=== PATIENT | male | born 1965 | race Caucasian/White ===

== ENCOUNTER 2023-01-25 09:06 | Outpatient (CLI) | payer BC ==
[2023-01-25 10:38] LABS: #Eosinphils 0.1 10x3/uL (0.0-0.5); #Monocytes 0.5 10x3/uL (0.0-1.1); %Basophils 0.7 % (0.0-2.0); %Eosinophils 2.2 % (0.0-6.0); %Lymphocytes 22.8 % (18.0-47.0); %Monocytes 7.5 % (0.0-10.0); %Neutrophils 66.5 % (40.0-75.0); Hemoglobin 13.5 g/dL (13.5-17.5); Mean Corpuscular HGB CONC 33.2 g/dL (32.0-36.0); Mean Corpuscular Hemoglobin 30.4 pg (27.0-33.0); Mean Corpuscular Volume 91.7 fl (81.2-95.1); Mean Platelet Volume 11.9 fl (7.4-10.4); Platelet Count 168 10x3/uL (150-450); RBC Distribution Width 12.8 % (11.5-14.5); Red Blood Cell (RBC) Count 4.44 10x6/uL (4.32-5.72)
== END 2023-01-25 09:07 | disposition home or self-care (01) ==
LOC: LABBT 09:06
PROVIDERS: ATTEND Surgery
DX: Z01.818 Encounter for other preprocedural examination (principal); K42.9 Umbilical hernia without obstruction or gangrene
CPT/HCPCS: 85025; 93005; 93010

== ENCOUNTER 2023-01-30 08:05 | Day surgery (SDC) | payer BC ==
[2023-01-26 11:38] VITALS: BMI 30.1
[2023-01-30] MEDS ORDERED: fentaNYL 50 mcg/mL 1 mL Vial ONE (10:52)
[2023-01-30] MEDS ORDERED: CEFAZOLIN 2 GM VIAL ONE (10:54)
[2023-01-30] MEDS ORDERED: Sodium Chloride 0.9% 100 ML ONE (10:55)
[2023-01-30] MEDS ORDERED: Lidocaine 1% PF 5 ML VIAL ONE (11:09)
[2023-01-30] MEDS ORDERED: Ondansetron PF 4 MG/2 ML Vial ONE (11:09)
[2023-01-30] MEDS ORDERED: PROPOFOL 200 MG/20 ML VIAL ONE (11:09)
[2023-01-30] MEDS ORDERED: ePHEDrine Sulfate 50 MG/10 ML VIAL ONE (11:09)
[2023-01-30] MEDS ORDERED: Lidocaine 2% PF 5 ML VIAL ONE ×2 (11:20→11:21)
[2023-01-30] MEDS ORDERED: Bupivacaine/Epinephrine 0.25% 30 ML VIAL ONE (11:20)
== END 2023-01-30 13:37 | disposition home or self-care (01) ==
LOC: SDC 08:05
PROVIDERS: ATTEND Surgery
PROC: 0WQF0ZZ Repair Abdominal Wall, Open Approach (ICD-10-PCS; principal; 2023-01-30)
DX: K42.9 Umbilical hernia without obstruction or gangrene (principal)
CPT/HCPCS: J2001; J2405; J2704; J3010; J3490

== ENCOUNTER 2024-03-12 10:42 | Outpatient (CLI) | payer BC | END 2024-03-12 10:43 | disposition home or self-care (01) | LOC: SCSMRI 10:42 | PROVIDERS: ATTEND Internal Medicine | DX: M99.87 Other biomechanical lesions of upper extremity (principal); D17.79 Benign lipomatous neoplasm of other sites | CPT/HCPCS: 82565 ==

== ENCOUNTER 2025-06-11 08:00 | Outpatient (CLI) | payer BC | END 2025-06-11 08:01 | disposition home or self-care (01) | LOC: PET 08:00 | PROVIDERS: ATTEND Internal Medicine | DX: D47.2 Monoclonal gammopathy (principal) | CPT/HCPCS: 78815; A9552 ==